=== PATIENT | female | born 1985 | race Caucasian/White ===

== ENCOUNTER → 2016-09-19 | Outpatient (CLI) | payer BC ==
[~2016-09-19] MED LIST: ALBU1AER9 INH; ASPI-390 PO; ASPI81TA28 PO; ATOR-26 PO; CALC500C70 PO; CLON0.5T3 PO; CLON1TAB3 PO; CTP/1 PO; FERR160T PO; FLUT0.15 NAE; LAMO25TA PO; METO25TA3 PO; MONT1TAB3 PO; SENNTAB23 PO; SERT-234 PO; VENL150C PO; VENL75CA PO; WLLSR150 PO
[2016-09-19 17:45] LABS: BASO % 0.5 %; BASO ABS # 0.04 K/uL (0-0.2); COMPLETE YES; HEMATOCRIT 36.5 % (37-47); IG% 0.3 %; LYMPH % 23.1 %; LYMPH ABS # 2.04 K/uL (1.2-3.4); MEAN CORPUSCULAR HEMOGLOBIN 30.1 pg (25-34); MEAN CORPUSCULAR HGB CONC 34.2 g/dl (32-36); MEAN PLATELET VOLUME 10.6 fL (7.4-10.4); MONO % 10.9 %; NEUT % 63.2 %; PLATELET COUNT 352 K/uL (130-400); RED BLOOD COUNT 4.15 M/uL (4.2-5.4); WHITE BLOOD COUNT 8.83 K/uL (4.8-10.8)
[2016-09-19 18:13] LABS: ALT/SGPT 25 U/L (12-78); AST/SGOT 12 U/L (15-37); BLOOD UREA NITROGEN 19 mg/dl (7-18); BUN/CREATININE RATIO 30.7 (10-20); CALCIUM 8.6 mg/dl (8.5-10.1); CARBON DIOXIDE 30 mmol/L (21-32); CHLORIDE 105 mmol/L (98-107); CREATININE 0.61 mg/dl (0.60-1.20); GLUCOSE 78 mg/dl (70-99); POTASSIUM 3.8 mmol/L (3.5-5.1); SODIUM 141 mmol/L (136-145)
[2016-09-19 18:24] LABS: ALB/GLOB RATIO 1.1 (0.9-2); ALKALINE PHOSPHATASE 69 U/L (45-117); FERRITIN 31.1 ng/ml (8.0-388.0); THYROID STIMULATING HORMONE 0.815 uIu/ml (0.300-4.500)
== END | disposition home or self-care (01) ==
LOC: C.LAB1850 17:18
PROVIDERS: ATTEND Family Medicine
DX: R52 Pain, unspecified (principal); R00.2 Palpitations

== ENCOUNTER → 2016-10-10 | Outpatient (CLI) | payer BC | END | disposition home or self-care (01) | LOC: C.PAPS 09:27 | PROVIDERS: ATTEND Obstetrics & Gynecology | DX: Z01.419 Encounter for gynecological examination (general) (routine) without abnormal findings (principal); Z87.42 Personal history of other diseases of the female genital tract ==

== ENCOUNTER → 2016-10-10 | Outpatient (CLI) | payer BC ==
[2016-10-10 18:44] LABS: URINE APPEARANCE CLEAR (CLEAR); URINE BILIRUBIN NEG (NEG); URINE COLOR YELLOW; URINE EPITHELIAL CELL AUTO 0-5 /lpf (0-5); URINE NITRITE NEG (NEG); UROBILINOGEN NEG (NEG)
[2016-10-10 18:50] LABS: MANUAL MICROSCOPIC REQUIRED? NO; REVIEW REQ? NO
[2016-10-14 00:36] LABS: CHLAMYDIA TRACH RNA*** NOT DETECTED (NOT DETECTED); GC (NEIS GONORRHOEAE)RNA** NOT DETECTED (NOT DETECTED); TRICHOMONAS VAGINALIS RNA** NOT DETECTED (NOT DETECTED)
== END | disposition home or self-care (01) ==
LOC: C.LABSPEC 17:50
PROVIDERS: ATTEND Obstetrics & Gynecology
DX: Z01.419 Encounter for gynecological examination (general) (routine) without abnormal findings (principal); R39.9 Unspecified symptoms and signs involving the genitourinary system; N89.8 Other specified noninflammatory disorders of vagina; Z87.42 Personal history of other diseases of the female genital tract

== ENCOUNTER 2017-02-16 18:46 | Inpatient (IN) | payer BC, OTHER ==
[~2017-02-16] VITALS: Ht 167.6 cm; Wt 75.0 kg
[~2017-02-16 18:46] MED LIST changes: -CTP/1 PO; -LAMO25TA PO; -METO25TA3 PO; -VENL150C PO; -VENL75CA PO; -WLLSR150 PO
--- NOTE | 2017-02-16 19:33 | EMERGENCY ROOM VISIT NOTE ---
History Report prepared by Vignesh: Jon Hilton Under the Supervision of: Dr. Golden Sandra M.D. First contact with patient: 19:13 Chief Complaint: MENTAL HEALTH EVALUATION Stated Complaint: MENTAL HEALTH CRISIS History of Present Illness The patient is a 31 year old female who presents to the Emergency Room for a mental health evaluation. The patient states that last October she had a heart attack, and ever since then she has been having PTSD and panic disorder. Additionally, she states that she was fired three days ago, and six days ago is when it started to get bad. She takes Effexor, clonidine, Klonopin, and Lamictal. She additionally states that she has been sleeping a lot recently, and last night she had a panic attack while shaking and her heart was racing. She additionally states that she has been having migraines, and she is congested and has chills. She denies any fevers. Source of History: patient Onset: 6 days ago Position: other (global) Quality: other (mental health evaluation) Associated Symptoms: + chills, No fevers Note: Associated symptoms: Congestion Review of Systems All systems have been listed, reviewed, and are negative other than those previously mentioned. Please see Additional Medical History Sheet. Past Medical & Surgical Medical Problems: (1) Acute [place] (2) Anxiety (3) Appendectomy (4) hemiplegic migraine Family History Blood clots MOTHER Stroke Thromboembolic disease MOTHER Social History Smoking Status: Current Every Day Smoker Alcohol Use: none Drug Use: none Marital Status: in relationship Housing Status: lives with roommate Occupation Status: employed Current/Historical Medications Scheduled Calcium/Vitamin D (Os-Calvin 500 Plus D), 1 TAB PO BID Clonazepam (Klonopin), 0.25 MG PO BID Clonidine Hcl (Catapres), 0.1 MG PO BID Ferrous Sulfate Dried (Slow Fe), 2 TAB PO QAM Ferrous Sulfate Dried (Slow Fe), 1 TAB PO HS Fluticasone Propionate (Nasal) (Flonase Allergy Relief), 2 SPRAYS ESTHER DAILY Lamotrigine (Lamictal), 50 MG PO HS Metoprolol Succ (Toprol Xl) (Toprol-Xl), 12.5 MG PO DAILY Montelukast Sodium (Singulair), 10 MG PO HS Venlafaxine Hcl (Effexor Xr), 75 MG PO DAILY Venlafaxine Hcl (Effexor Xr), 150 MG PO DAILY Scheduled PRN Albuterol (Proair Hfa), 2 PUFF INH Q4H PRN for SOB/Wheezing Kktrgqe-Gixozlukpnzpx-Hlkqufnz (Excedrin Migraine), 1 TAB PO BID PRN for MIGRAINES Allergies Coded Allergies: Bacitracin (Verified Allergy, Unknown, swelling ,fungal infection, 02/16/17 ) Neomycin (Verified Allergy, Unknown, unknown, 02/16/17) per [facility] Polymyxin B (Verified Allergy, Unknown, unknown, 02/16/17) per [facility] Propylene Glycol (Verified Allergy, Unknown, unknown, 02/16/17) per [facility] Physical Exam Vital Signs Date Time Temp Pulse Resp B/P (MAP) Pulse Ox O2 Delivery O2 Flow Rate FiO2 02/16/17 19:03 102 18 148/80 98 Room Air Physical Exam GENERAL: Tearful, despondent, forlorn. Patient awake, alert, oriented x 3. Patient follows commands. Patient does not appear toxic. Patient is adequately hydrated and well-nourished. SKIN: No erythema, pallor, cyanosis or rash HEENT: Normal head, pupils equal, reactive to light and accommodation. Oral cavity and posterior pharynx appear normal. Tenderness over the maxillary sinuses. LUNGS: Clear to auscultation. No wheezes, no rales, no rhonchi. HEART: No murmurs. No gallops. No rubs ABDOMEN: Soft and nontender EXTREMITIES: No signs of trauma or infection. NEUROLOGIC: Cranial nerves II-XII within normal limits. No gross motor sensory function deficits. PSYCH: Awake, alert, oriented, fearful, and tearful. Denies suicidal ideation. Medical Decision & Procedures Laboratory Results 02/16/17 20:17 02/16/17 20:17 Test 02/16/17 19:15 02/16/17 20:17 Urine Color YELLOW Urine Appearance CLEAR (CLEAR) Urine pH 5.5 (4.5-7.5) Urine Specific [place] 1.028 (1.000-1.030) Urine Protein TRACE (NEG) Urine Glucose (UA) NEG (NEG) Urine Ketones TRACE (NEG) Urine Occult Blood 2+ (NEG) Urine Nitrite NEG (NEG) Urine Bilirubin NEG (NEG) Urine Urobilinogen NEG (NEG) Urine Leukocyte Esterase NEG (NEG) Urine WBC (Auto) 1-5 /hpf (0-5) Urine RBC (Auto) >30 /hpf (0-4) Urine Hyaline Casts (Auto) 5-10 /lpf (0-5) Urine Epithelial Cells (Auto) >30 /lpf (0-5) Urine Bacteria (Auto) NEG (NEG) Urine Opiates Screen NEG (NEG) Urine Methadone, Qualitative NEG (NEG) Urine Barbiturates NEG (NEG) Urine Phencyclidine (PCP) Level NEG (NEG) Ur Amphetamine/Methamphetamine NEG (NEG) MDMA (Ecstasy) Screen NEG (NEG) Urine Benzodiazepines Screen NEG (NEG) Urine Cocaine Metabolite NEG (NEG) Urine Marijuana (THC) POS (NEG) Red Blood Count 4.39 M/uL (4.2-5.4) Mean Corpuscular Volume 88.2 fL (80-100) Mean Corpuscular Hemoglobin 30.3 pg (25-34) Mean Corpuscular Hemoglobin Concent 34.4 g/dl (32-36) RDW Standard Deviation 40.3 fL (36.4-46.3) RDW Coefficient of Variation 12.6 % (11.5-14.5) Mean Platelet Volume 10.4 fL (7.4-10.4) Anion Gap 5.0 mmol/L (3-11) Est Creatinine Clear Calc Drug Dose 118.6 ml/min Estimated GFR () 133.5 Estimated GFR (Non- 115.2 BUN/Creatinine Ratio 20.6 (10-20) Calcium Level 8.8 mg/dl (8.5-10.1) Total Bilirubin 0.3 mg/dl (0.2-1) Aspartate Amino Transf (AST/SGOT) 15 U/L (15-37) Alanine Aminotransferase (ALT/SGPT) 28 U/L (12-78) Alkaline Phosphatase 58 U/L (45-117) Total Protein 7.8 gm/dl (6.4-8.2) Albumin 3.9 gm/dl (3.4-5.0) Globulin 3.9 gm/dl (2.5-4.0) Albumin/Globulin Ratio 1.0 (0.9-2) Thyroid Stimulating Hormone (TSH) 1.390 uIu/ml (0.300-4.500) Ethyl Alcohol mg/dL < 3.0 mg/dl (0-3) ED Course 1912: Past medical records reviewed. The patient was evaluated in room A8. A complete history and physical examination was performed. Medical Decision Nurses notes reviewed. Medical history sheet reviewed. Differential diagnosis includes but is not limited to: anxiety reaction, severe depression, metabolic disorder, sinusitis. The patient is here with depression. She is unable to cope at home. She is not suicidal but unable to care for herself or her baby. Multiple labs, EKG and urinalysis were obtained. Please see above. The patient was given Ativan for anxiety. She was also given a NicoDerm patch. She was evaluated by our psych liaison nurse. Patient will be admitted to our psychiatric floor. Blood Pressure Screening Blood pressure disposition: Elevated BP felt to be situational Impression Primary Impression: Severe depression Additional Impression: Anxiety Scribe Attestation The scribe's documentation has been prepared under my direction and personally reviewed by me in its entirety. I confirm that the note above accurately reflects all work, treatment, procedures, and medical decision making performed by me. Departure Information Referrals Opal Akins M.D. (PCP) Patient Instructions [facility] Problem Qualifiers
[2017-02-16 19:55] LABS: MANUAL MICROSCOPIC REQUIRED? NO; REVIEW REQ? NO; URINE APPEARANCE CLEAR (CLEAR); URINE BILIRUBIN NEG (NEG); URINE COLOR YELLOW; URINE EPITHELIAL CELL AUTO >30 /lpf (0-5); URINE NITRITE NEG (NEG); URINE PH 5.5 (4.5-7.5); URINE SPECIFIC GRAVITY 1.028 (1.000-1.030); UROBILINOGEN NEG (NEG)
[2017-02-16] MEDS ORDERED: VENL75CA PO (19:56)
[2017-02-16] MEDS ORDERED: CTP/1 PO (19:56)
[2017-02-16] MEDS ORDERED: METO25TA3 PO (19:56)
[2017-02-16] MEDS ORDERED: LAMO25TA PO (19:56)
[2017-02-16] MEDS ORDERED: VENL150C PO (19:56)
[2017-02-16 20:23] LABS: BENZODIAZEPINE, URINE NEG (NEG); COCAINE,URINE NEG (NEG); PHENCYCLIDINE, URINE NEG (NEG)
[2017-02-16 20:34] LABS: HEMATOCRIT 38.7 % (37-47); MEAN CELL VOLUME 88.2 fL (80-100); MEAN CORPUSCULAR HEMOGLOBIN 30.3 pg (25-34); MEAN CORPUSCULAR HGB CONC 34.4 g/dl (32-36); MEAN PLATELET VOLUME 10.4 fL (7.4-10.4); PLATELET COUNT 396 K/uL (130-400); RED BLOOD COUNT 4.39 M/uL (4.2-5.4); WHITE BLOOD COUNT 9.91 K/uL (4.8-10.8)
[2017-02-16 20:49] LABS: BUN/CREATININE RATIO 20.6 (10-20); CALCIUM 8.8 mg/dl (8.5-10.1); CREATININE 0.69 mg/dl (0.60-1.20); POTASSIUM 3.6 mmol/L (3.5-5.1)
[2017-02-16 21:00] LABS: THYROID STIMULATING HORMONE 1.39 uIu/ml (0.300-4.500)
[2017-02-16] MEDS ORDERED: LORAZEPAM 1 MG TAB PO STA (21:01)
[2017-02-16] MEDS ORDERED: NICOTINE 14 MG/24 HR TDSY ONE (21:35)
[2017-02-16] MEDS ORDERED: LORAZEPAM 2 MG/ML 1 ML VIAL IV STA (22:06)
[2017-02-16] MEDS ORDERED: CLONAZEPAM 0.5 MG TAB PO ONE (22:41)
[2017-02-16] MEDS ORDERED: hydrOXYzine HCL 25 MG TAB PO PRN (22:45)
[2017-02-16] MEDS ORDERED: SODIUM CHLORIDE 0.65% NA SOLN 45 ML (OCEAN) PRN (22:45)
[2017-02-16] MEDS ORDERED: ALBUTEROL HFA 8 GM INHALER INH PRN (22:45)
[2017-02-16] MEDS ORDERED: RISPERIDONE 0.5 MG TAB PO PRN (22:45)
[2017-02-16] MEDS ORDERED: BISMUTH SUBSALICYLATE PER ML OMNICELL CHARGE PO PRN (22:45)
[2017-02-16] MEDS ORDERED: ACETAMINOPHEN 325 MG TAB PO PRN (22:45)
[2017-02-16 23:13] VITALS: BP 131/81; BMI 20.5
[2017-02-16] MEDS ORDERED: ACETAMINOPHEN 500 MG TAB PO ONE (23:41)
[2017-02-17 00:07] VITALS: O2SAT 97
[2017-02-17] MEDS: hydrOXYzine HCL 25 MG TAB PO PRN (01:02)
[2017-02-17] MEDS ORDERED: CLONAZEPAM 0.5 MG TAB PO ONE (01:30)
[2017-02-17 06:47] VITALS: BP_SYST 129; BP_SYST 134; BP_DIAS 86; BP_DIAS 93; PULSE 84; PULSE 86; TEMP 36.7
[2017-02-17] MEDS ORDERED: NICOTINE 14 MG/24 HR TDSY TD SCH (09:00)
[2017-02-17] MEDS: CAFFEINE PO SCH ×2 (09:00→22:00)
[2017-02-17] MEDS: ASPIRIN PO SCH ×2 (09:00→22:00)
[2017-02-17] MEDS: ACETAMINOPHEN PO SCH ×2 (09:00→22:00)
[2017-02-17] MEDS: CALCIUM 600MG + VIT D 400 IU TAB PO SCH ×2 (09:43→22:11)
[2017-02-17] MEDS: FLUTICASONE PROPIONATE NA SPR 16 GM BTL NAE SCH (09:43)
[2017-02-17] MEDS: CLONIDINE HCL 0.1 MG TAB PO SCH ×2 (09:44→22:11)
[2017-02-17] MEDS: VENLAFAXINE HCL XR 150 MG CAPXR PO SCH (09:44)
[2017-02-17] MEDS: VENLAFAXINE HCL XR 75 MG CAPXR PO SCH (09:44)
[2017-02-17] MEDS: CLONAZEPAM 0.5 MG TAB PO SCH ×3 (09:45→22:11)
[2017-02-17] MEDS: FERROUS SULFATE 325 MG TAB PO SCH (09:45)
[2017-02-17] MEDS: METOPROLOL SUCC 25MG EXT REL TAB PO SCH (09:46)
[2017-02-17] MEDS: NICOTINE POLACRILEX 2 MG GUM MT PRN ×2 (11:27→16:12)
[2017-02-17] MEDS ORDERED: BuPROPion SR 100 MG TABCR PO ONE (12:00)
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
--- NOTE | 2017-02-17 12:11 | Psychiatric History & Physical ---
History Date of Service Feb 17, 2017. Identifying Data Ghazal Laguna is a 31-year-old female who currently lives with her boyfriend in [place]. Ghazal Laugna was admitted on a 201 voluntary commitment. Patient came to ED with family after contacting [facility] for suicidal thoughts. Additional history was obtained by her outpatient psychiatrist Dr. Roman for continuity of care. Chief Complaint "I didn't want things to get to this point". History of Present Illness Ghazal initially entered care [facility] approximately 2003 for depression, anxiety and possible bipolar spectrum disorder (given reports of possible psychotic features and atypical response to medication). She re- entered psychiatric services 1 year ago for increase in panic and PTSD like symptoms following a myocardial infarct. She was able to return to work for [employer] after 1 year of [place] but was recently fired. She had previously told her psychiatrist that if she would lose her job that she wouldn' t want to live or rather have nothing to live for. She wants to be able to work and feel productive. She was peeling an avocado yesterday and had an intrusive thought about stabbing herself in the heart and activated her crisis plan. She doesn't want to act on such thoughts as she wants to be "there for" and care for her daughter. She admittedly struggled with tasks due to depression and anxiety, lack of focus and energy. She also notes stress related to her relationship, traumatic in 2013, and chronic headaches. She is more self-aware following longstanding therapy with Dr. Wade but has difficulty coping when others "project my thoughts onto me". When stressed she will pick at her skin and has multiple clean excoriations on her shoulders, chest and forearms that border on trichotillomania but she denies hairpulling of eye brows or lashes. She has been hypersomnolent with increased cravings for sweets, though some improvement in those symptoms following discontinuation of Remeron in December. She remains ambivalent about medications as reports side effects to various mood stabilizers in the past. Past Psychiatric History Current OP Treatment: psychiatrist (Dr. Roman ([facility])), therapist ( Dr. Wade, [facility]) Prior OP Treatment: psychiatrist ([facility]) Prior Psych Hospitalizations: none Access to a Gun: No Suicide Attempts: No Past Medication Trials Amanda, Lamictal, Abiligy ("thick tongue"), Zoloft, Klonopin (sedating), TCA, trazodone, Strattera, Risperdal (recent short term as prn), Effexor XR, clonidine (was started for anxiety but ultimately dose adjustment via cards to BID following [place]); NO previous Wellbutrin or Buspar. Additional Notes prior dx of bipolar II, MDD, panic, PTSD, possible borderline traits, ongoing rule out of schizoaffective disorder denies history of manic symptoms longstanding fears about someone trying to kill her with obsessions around safety (even not having current address on license). Past Medical/Surgical History History of Concussion/Seizure: No (1) hemiplegic migraine (2) Appendectomy (3) Acute [place] Allergies Allergies: Coded Allergies: Bacitracin (Verified Allergy, Unknown, swelling ,fungal infection, 02/16/17 ) Neomycin (Verified Allergy, Unknown, unknown, 02/16/17) per [facility] Polymyxin B (Verified Allergy, Unknown, unknown, 02/16/17) per [facility] Propylene Glycol (Verified Allergy, Unknown, unknown, 02/16/17) per [facility] Home Medications Scheduled Calcium/Vitamin D (Os-Calvin 500 Plus D), 1 TAB PO BID Clonazepam (Klonopin), 0.25 MG PO BID Clonidine Hcl (Catapres), 0.1 MG PO BID Ferrous Sulfate Dried (Slow Fe), 2 TAB PO QAM Ferrous Sulfate Dried (Slow Fe), 1 TAB PO HS Fluticasone Propionate (Nasal) (Flonase Allergy Relief), 2 SPRAYS ESTHER DAILY Lamotrigine (Lamictal), 50 MG PO HS Metoprolol Succ (Toprol Xl) (Toprol-Xl), 12.5 MG PO DAILY Montelukast Sodium (Singulair), 10 MG PO HS Venlafaxine Hcl (Effexor Xr), 75 MG PO DAILY Venlafaxine Hcl (Effexor Xr), 150 MG PO DAILY Scheduled PRN Albuterol (Proair Hfa), 2 PUFF INH Q4H PRN for SOB/Wheezing Veejyzv-Pufbaedhbfkii-Kzdqmfmu (Excedrin Migraine), 1 TAB PO BID PRN for MIGRAINES Family History Blood clots MOTHER Stroke Thromboembolic disease MOTHER History of Suicide: No History of Substance Abuse: No Psychiatric History: Yes (mother and father anxiety, fa depression, sister trich, brother ?psychotic disorder) Alcohol Use Alcohol Use In Past 12 Months: Yes (1 beer per night) Smoking Use Smoking Status: Current Every Day Smoker Substance History regular MJ Personal History Lives in: [place] Education: graduated college Work History: GIS mapping for [employer] Relationship History: never Children: 1 Spiritual Affiliation: atheist Legal History: none Psychological Trauma History: Life Threatening Disease ([place], emergency ) Review of Systems Psych: denies symptoms other than stated above Constitutional: denied Cardiovascular: denied GI: denied Neurologic: headache last pm Remainder of 10 body systems also reviewed and denied other than noted above. Examination Physical Examination A physical exam was performed in the ER prior to admission to the unit by Dr. Sandra. I accept that physical as correct/medical clearance for the inpatient physical exam. Vital Signs Vital Signs Past 12 Hours Date Time Temp Pulse Resp B/P (MAP) Pulse Ox O2 Delivery O2 Flow Rate FiO2 02/17/17 06:47 36.7 84 16 129/86 86 134/93 02/17/17 00:07 99 18 131/81 97 Laboratory Results Last 24 Hours Test 02/16/17 19:15 02/16/17 20:17 Urine Color YELLOW Urine Appearance CLEAR Urine pH 5.5 Urine Specific [place] 1.028 Urine Protein TRACE Urine Glucose (UA) NEG Urine Ketones TRACE Urine Occult Blood 2+ Urine Nitrite NEG Urine Bilirubin NEG Urine Urobilinogen NEG Urine Leukocyte Esterase NEG Urine WBC (Auto) 1-5 /hpf Urine RBC (Auto) >30 /hpf Urine Hyaline Casts (Auto) 5-10 /lpf Urine Epithelial Cells (Auto) >30 /lpf Urine Bacteria (Auto) NEG Urine Opiates Screen NEG Urine Methadone, Qualitative NEG Urine Barbiturates NEG Urine Phencyclidine (PCP) Level NEG Ur Amphetamine/Methamphetamine NEG MDMA (Ecstasy) Screen NEG Urine Benzodiazepines Screen NEG Urine Cocaine Metabolite NEG Urine Marijuana (THC) POS White Blood Count 9.91 K/uL Red Blood Count 4.39 M/uL Hemoglobin 13.3 g/dL Hematocrit 38.7 % Mean Corpuscular Volume 88.2 fL Mean Corpuscular Hemoglobin 30.3 pg Mean Corpuscular Hemoglobin Concent 34.4 g/dl RDW Standard Deviation 40.3 fL RDW Coefficient of Variation 12.6 % Platelet Count 396 K/uL Mean Platelet Volume 10.4 fL Sodium Level 140 mmol/L Potassium Level 3.6 mmol/L Chloride Level 108 mmol/L Carbon Dioxide Level 27 mmol/L Anion Gap 5.0 mmol/L Blood Urea Nitrogen 14 mg/dl Creatinine 0.69 mg/dl Est Creatinine Clear Calc Drug Dose 118.6 ml/min Estimated GFR () 133.5 Estimated GFR (Non- 115.2 BUN/Creatinine Ratio 20.6 Random Glucose 109 mg/dl Calcium Level 8.8 mg/dl Total Bilirubin 0.3 mg/dl Aspartate Amino Transf (AST/SGOT) 15 U/L Alanine Aminotransferase (ALT/SGPT) 28 U/L Alkaline Phosphatase 58 U/L Total Protein 7.8 gm/dl Albumin 3.9 gm/dl Globulin 3.9 gm/dl Albumin/Globulin Ratio 1.0 Thyroid Stimulating Hormone (TSH) 1.390 uIu/ml Ethyl Alcohol mg/dL < 3.0 mg/dl Mental Examination During interview pt is: alert and oriented, cooperative Appearance: appropriately groomed Eye contact is: fair Motor behavior is: no abnormal motor movements Speech: normal in rate, rhythm & volume Affect: depressed, tearful Mood is: depressed, anxious Thought process: clear, coherent Thought content: reality based without delusions Suicidal thought are: denied Homicidal thoughts are: denied Hallucinations: denies auditory, denies visual Cognition: memory grossly intact, language grossly intact Intelligence estimated to be: consistent with level of education Insight: limited Judgement: limited Impression / Recommendations Impression 31 yo female with a long history of anxiety and depression, anxiety bordering on paranoia. There is family history of OCD spectrum disorder (trich) as well as possible psychotic disorder. She continues to endorse multiple vegetative symptoms of depression despite target dose Effexor XR. She uses MJ regularly. Inventory Assets Strengths: intelligent, longstanding relationship with providers Risk Factors Assessment : Yes Higher / Fall in social status: Yes (job loss) Access to guns: No Mental Health Diagnoses: Yes Previous attempt: No Previous psychiatric stay: No Protective Factors Assessment Responsible for young children: Yes Employed: No Stable relationships: Yes Recommendations (1) Major depressive disorder, recurrent episode 02/17--The patient is admitted to [facility] (locked inpatient mental health unit) on q 15 min checks (behavioral with suicide precautions) for safety. The patient will participate in group, recreational and milieu therapies and will be offered additional individual and family sessions as clinically appropriate. Risks/benefits/alternatives reviewed re: Wellbutrin for residual low energy, depression and poor focus. Reviewed that dopaminergic so rare risk of exacerbating psychosis. No psychosis on exam and primary presentation is depressed and will be monitored on inpatient unit. Wellbutrin is to augment Effexor XR, will start low dose of 100 mg SR today and increase to 150 mg SR tomorrow am. Additional titration as tolerated. (2) Panic disorder with agoraphobia continue Effexor XR and Klonopin at current doses though ultimately may be preferable to taper Klonopin in favor of trial of Buspar. PDMP rx Aware database query, last rx by Dr. Roman filled 02/05 for 60 tabs of 0.5 mg. (3) History of posttraumatic stress disorder (PTSD) group therapy, ongoing monitoring and reassurance around medical conditions (4) Excoriation (skin-picking) disorder monitor, no cutting so doesn't seem driven as SIB, more OCD spectrum, consider inositol as outpatient, ?keratosis pilaris as contributing factor (5) Cannabis use disorder, mild, in controlled environment will encourage abstinence, full brief intervention deferred for when more psychological stable (6) Nicotine dependence nicotine gum. Patient desires to continue smoking as a coping skill. Will readdress brief intervention prior to discharge. (7) Status post myocardial infarction continue current meds, I do have some concerns about combo of clonidine or metoprolol if patient would have thoughts to OD given both can cause bradycardia (8) Migraine headache prefers ibuprofen, states she is between neurologists at this time so f/u re: this and pressors most likely with PCP initially. CPT Code Initial Hospital Care: [id number]
[2017-02-17] MEDS ORDERED: NURSING VERBAL MED ORDER ONE (19:30)
[2017-02-17] MEDS: NICOTINE 14 MG/24 HR TDSY TD SCH (20:03)
[2017-02-17] MEDS ORDERED: FERROUS SULFATE DRIED PO SCH (21:00)
[2017-02-17] MEDS: MONTELUKAST SOD 10 MG TAB PO SCH (22:11)
[2017-02-18] MEDS: hydrOXYzine HCL 25 MG TAB PO PRN (01:04)
[2017-02-18 06:59] VITALS: BP_SYST 118; BP_SYST 120; BP_DIAS 75; BP_DIAS 83; PULSE 71; PULSE 73; TEMP 36.6
[2017-02-18 07:07] VITALS: Ht 167.6 cm; Wt 75.0 kg
--- NOTE | 2017-02-18 07:52 | Psychiatric Progress Notes ---
Progress Note Date of Service Feb 18, 2017. Interval History Ghazal Laguna is a 31-year-old female who currently lives with her boyfriend in [place]. Ghazal Laguna was admitted on a 201 voluntary commitment. Patient came to ED with family after contacting [facility] for suicidal thoughts. Additional history was obtained by her outpatient psychiatrist Dr. Roman for continuity of care. Chief Complaint "This is probably one of the biggest mistakes of my life". Subjective Patient was seen & assessed interval progress reviewed with Nursing. Staff report she got hydroxyzine for sleep, and slept 5 hours. Her parents visited the first night she was admitted, and were somewhat intrusive and demanding. She had a 2 hour meeting with her parents and boyfriend yesterday. Her relationship with her boyfriend was the focus, so her parents were asked to leave. They were quick to attack one another and had poor communication skills. Both indicated that the only reason they were in the relationship was because of their daughter. She said her boyfriend is too harsh on her, doesn't understand or validate her inability to function related to her depression, and Vlad was upset because he has serious medical problems and forces himself to go to work and is then left with all of the housework and other responsibilities. They seemed to compete with one another for who contributes the most and who needs the most help. They were asked repeatedly about willingness for out-patient couples work with no response, they talked about separation, and then parents rejoined the meeting and when the patient began rehashing what was discussed earlier, her mother joined into the discussion and confronted Vlad, encouraging him to think about getting help for himself before making a final decision and said that if he decides to end the relationship that he needs to take ownership of this. He agreed not to end the relationship yet and to get an individual therapist, but was not yet ready to commit to couples therapy. Very little time of the two hour meeting was actually spent focussing on what pt needs for support moving forward. Mother did try to reinforce to Vlad that pt doesn't want to feel like this and revealed that she herself went through a period of around 6 months when she was unable to do grocery shopping or household duties other than getting a child off of the school bus. Vlad said that he does know that pt doesn't want to feel like this but that he still needs for her to take some responsibility. The patient states she is very unhappy that she is here, "I can't believe I signed myself into a place where you can't go outside and get fresh air," and perseverates on this, with many complaints about hospital policies, "I can't believe any mental health professional would do this, how are you supposed to get better without fresh air and nature? If I can't get out of here soon, I'm going to have to go somewhere else." She states she "doesn't know" what she is working on here, or what her goals of treatment are. She says she was feeling suicidal and "I knew I had that option, if I couldn't take it anymore, I knew I could end my suffering." She says that now that she has a child, "it's not even on the table as a theoretical option." She describes "not even wanting to exist , feeling like I couldn't live in the world anymore, fantasizing about not living, just want to go to sleep and just not wake up, don't want to keep breathing, don't want my heart to keep beating, don't want to keep suffering and living in this horrible, horrible world." She describes being unable to function at home, was unable to leave her house, worse since the election, "at least 1 in 3 people out there want me and my friends , I just feel very unsafe I the world, I feel helpless to do anything about it. I feel very scared...there are monsters around every corner." She talks at length about " all the hatefulness in the world." She says she hasn't discussed any of this with staff or in groups. She says it won't do any good to talk about this in group as "no one will have any suggestions for real threats," referring to her political views. She says she doesn't think things will get any better, "it just gets scarier every day." Multiple attempts were made to redirect her towards her treatment here, and she said she "doesn't even know" what was on her treatment plan or what she's discussed with staff. "I have no will to live, more and more disturbing thoughts related to myself dying, it got to a point where it was getting scary and I needed to go for help." She says she doesn't know if medications are helping or if she is having side effects. She felt worse after her family meeting yesterday, and "went to group for the first time which was terrifying." She felt "drained" last night and slept better. She had visits from friends and family and "just wanted them to go away." Today she says "I just want to get out of here, I have a headache, I have headaches all the time." She admits that nothing has changed since admission, "things at home are really bad, and when I lost my job, which was a horrible, horrible thing, getting fired was really bad..." Sleep Information Total Hours of Sleep: 5.00 Meal Information Percent of Breakfast Consumed: 100 Percent of Lunch Consumed: 0 Percent of Dinner Consumed: 0 Mental Status Exam During interview pt is: alert and oriented, cooperative Appearance: appropriately groomed, disheveled, other (scrub pants, long sleeved t-shirt, headwrap) Eye contact is: fair Motor behavior is: steady gait & station, no abnormal motor movements Speech: normal in rate, rhythm & volume Affect: depressed, tearful, irritable Mood is: depressed, other ("not good") Thought process: goal directed, perseveration (negative thoughts) Thought content: preoccupation (with the negativity in the world) Suicidal thought are: present ("just want to go to sleep and not wake up") Homicidal thoughts are: denied Hallucinations: denies auditory, denies visual Cognition: memory grossly intact, language grossly intact Intelligence estimated to be: consistent with level of education Insight: limited Judgement: limited Impression 31 yo female with a long history of anxiety and depression, anxiety bordering on paranoia. There is family history of OCD spectrum disorder (trich) as well as possible psychotic disorder. She continues to endorse multiple vegetative symptoms of depression despite target dose Effexor XR, so bupropion was added on admission. She uses MJ regularly. Plan (1) Major depressive disorder, recurrent episode 02/17--The patient is admitted to [facility] (locked inpatient mental health unit) on q 15 min checks (behavioral with suicide precautions) for safety. The patient will participate in group, recreational and milieu therapies and will be offered additional individual and family sessions as clinically appropriate. Risks/benefits/alternatives reviewed re: Wellbutrin for residual low energy, depression and poor focus. Reviewed that dopaminergic so rare risk of exacerbating psychosis. No psychosis on exam and primary presentation is depressed and will be monitored on inpatient unit. Wellbutrin is to augment Effexor XR, will start low dose of 100 mg SR today and increase to 150 mg SR tomorrow am. Additional titration as tolerated. 02/18 - continue venlafaxine XR 225mg daily and bupropion SR, increased to 150mg qam today. Encouraged her to participate in groups and process her stressors, work on healthy coping skills to manage her distress. (2) Panic disorder with agoraphobia continue Effexor XR and Klonopin at current doses though ultimately may be preferable to taper Klonopin in favor of trial of Buspar. PDMP rx Aware database query, last rx by Dr. Roman filled 02/05 for 60 tabs of 0.5 mg. (3) History of posttraumatic stress disorder (PTSD) group therapy, ongoing monitoring and reassurance around medical conditions (4) Excoriation (skin-picking) disorder monitor, no cutting so doesn't seem driven as SIB, more OCD spectrum, consider inositol as outpatient, ?keratosis pilaris as contributing factor (5) Cannabis use disorder, mild, in controlled environment will encourage abstinence, full brief intervention deferred for when more psychological stable. 02/18 - Again attempted brief intervention, patient unable to tolerate, angry and defensive. (6) Nicotine dependence nicotine gum. Patient desires to continue smoking as a coping skill. Will readdress brief intervention prior to discharge. 02/18 - patch added to gum at patient's request for cravings. (7) Status post myocardial infarction continue current meds, I do have some concerns about combo of clonidine or metoprolol if patient would have thoughts to OD given both can cause bradycardia (8) Migraine headache prefers ibuprofen, states she is between neurologists at this time so f/u re: this and pressors most likely with PCP initially. (9) Upper respiratory infection 02/18 - patient reporting congestion and BRAVO. Tylenol, Ibuprofen, guaifenesin, nasal spray, and lozenges prn. Discharge / Aftercare Planning Primary Care Physician: Name: Dr. Akins Psychiatrist: Name: Dr. Roman Therapist: Name: Dr. Cade Date of Appointment: Feb 22, 2017 Time of Appointment: 6:00 pm Cardiology Nurse Practitioner: Name: None Home Health Services: Home Health Services: none Visit Code E&M Code: 04347 Inventory Assets Strengths: intelligent, longstanding relationship with providers Risk Factors Assessment : Yes Higher / Fall in social status: Yes (job loss) Access to guns: No Health problems: No Mental Health Diagnoses: Yes Substance use disorders: Yes Previous attempt: No Previous psychiatric stay: No Hopelessness: Yes Smoker: Yes Protective Factors Assessment : No Responsible for young children: Yes Employed: No Stable relationships: Yes Supportive family: Yes Data Vital Signs Last 24 Hrs: Date Time Temp Pulse Resp B/P (MAP) Pulse Ox O2 Delivery O2 Flow Rate FiO2 02/18/17 06:59 36.6 71 16 120/75 73 118/83 Meds Administered Last 24 Hrs: Meds Administered (Past 24Hrs) Medications (Trade) Dose Ordered Sig/Live Route Start Time Stop Time Status Last Admin Dose Admin Lorazepam (Ativan Tab) 1 mg NOW STAT PO 02/16/17 21:01 02/16/17 21:02 DC 02/16/17 21:15 1 MG Nicotine (Nicoderm Cq 14MG Patch) 1 patch STK-MED ONCE .ROUTE 02/16/17 21:35 02/16/17 21:36 DC 02/16/17 21:41 1 PATCH Lorazepam (Ativan Inj) 1 mg NOW STAT IV 02/16/17 22:06 02/16/17 22:07 DC 02/16/17 22:22 1 MG Hydroxyzine HCl (Vistaril Tab) 50 mg HSZ PRN PO 02/16/17 22:45 03/18/17 22:44 02/18/17 01:04 50 MG Calcium/Vitamin D (Caltrate Plus Tab) 1 tab BID PO 02/17/17 09:00 03/19/17 08:59 02/17/17 22:11 1 TAB Clonazepam (Klonopin Tab) 0.25 mg TID PO 02/17/17 09:00 03/19/17 08:59 02/17/17 22:11 0.25 MG Clonidine HCl (Catapres Tab) 0.1 mg BID PO 02/17/17 09:00 03/19/17 08:59 02/17/17 22:11 0.1 MG Fluticasone Propionate (Flonase Nasal [place]) 2 sprays DAILY ESTHER 02/17/17 09:00 03/19/17 08:59 02/17/17 09:43 2 SPRAYS Lamotrigine (Lamictal Tab) 50 mg HS PO 02/17/17 21:00 03/19/17 20:59 02/17/17 22:11 50 MG Metoprolol Succinate (Toprol Xl Tab) 12.5 mg DAILY PO 02/17/17 09:00 03/19/17 08:59 02/17/17 09:46 12.5 MG Montelukast Sodium (Singulair Tab) 10 mg HS PO 02/17/17 21:00 03/19/17 20:59 02/17/17 22:11 10 MG Venlafaxine HCl (effeXOR EXTENDED REL CAP) 75 mg DAILY PO 02/17/17 09:00 03/19/17 08:59 02/17/17 09:44 75 MG Venlafaxine HCl (effeXOR EXTENDED REL CAP) 150 mg DAILY PO 02/17/17 09:00 03/19/17 08:59 02/17/17 09:44 150 MG Ferrous Sulfate (Feosol Tab) 325 mg QAM PO 02/17/17 09:00 03/19/17 08:59 02/17/17 09:45 325 MG Diphenhydramine HCl (Benadryl Cap) 25 mg STK-MED ONCE .ROUTE 02/16/17 23:41 02/16/17 23:42 DC 02/16/17 23:41 25 MG Acetaminophen (Tylenol Tab) 1,000 mg STK-MED ONCE PO 02/16/17 23:41 02/16/17 23:42 DC 02/16/17 23:41 1,000 MG Clonazepam (Klonopin Tab) 0.25 mg 0130 ONCE PO 02/17/17 01:30 02/17/17 01:31 DC 02/17/17 01:25 0.25 MG Nicotine Polacrilex (Nicorette 2MG Gum) 1 piece Q2H PRN MT 02/17/17 11:00 03/19/17 10:59 02/17/17 16:12 1 PIECE Bupropion HCl (Wellbutrin-Sr Tab) 100 mg 1200 ONCE PO 02/17/17 12:00 02/17/17 12:01 DC 02/17/17 12:18 100 MG Nicotine (Nicoderm Cq 14MG Patch) 1 patch QAM TD 02/17/17 21:00 03/19/17 20:59 02/17/17 20:03 1 PATCH
[2017-02-18] MEDS: VENLAFAXINE HCL XR 75 MG CAPXR PO SCH (08:36)
[2017-02-18] MEDS: CLONIDINE HCL 0.1 MG TAB PO SCH ×2 (08:36→21:26)
[2017-02-18] MEDS: FERROUS SULFATE 325 MG TAB PO SCH (08:36)
[2017-02-18] MEDS: FLUTICASONE PROPIONATE NA SPR 16 GM BTL NAE SCH (08:36)
[2017-02-18] MEDS: CALCIUM 600MG + VIT D 400 IU TAB PO SCH ×2 (08:36→21:25)
[2017-02-18] MEDS: NICOTINE 14 MG/24 HR TDSY TD SCH (08:37)
[2017-02-18] MEDS: BuPROPion SR 150 MG TABCR PO SCH (08:37)
[2017-02-18] MEDS: METOPROLOL SUCC 25MG EXT REL TAB PO SCH (08:37)
[2017-02-18] MEDS: VENLAFAXINE HCL XR 150 MG CAPXR PO SCH (08:38)
[2017-02-18] MEDS: CLONAZEPAM 0.5 MG TAB PO SCH ×3 (08:39→21:26)
[2017-02-18] MEDS: ACETAMINOPHEN PO SCH ×2 (09:00→22:00)
[2017-02-18] MEDS: CAFFEINE PO SCH ×2 (09:00→22:00)
[2017-02-18] MEDS: ASPIRIN PO SCH ×2 (09:00→22:00)
[2017-02-18] MEDS ORDERED: IBUPROFEN 600 MG TAB PO PRN (11:15)
[2017-02-18] MEDS: GUAIFENESIN 200 MG TAB PO PRN ×2 (12:51→21:29)
[2017-02-18] MEDS: IBUPROFEN 600 MG TAB PO PRN (12:53)
[2017-02-18] MEDS: MONTELUKAST SOD 10 MG TAB PO SCH (21:28)
[2017-02-18 22:13] VITALS: BP 138/90; PULSE 80
[2017-02-19 07:00] VITALS: BP_SYST 122; BP_SYST 132; BP_DIAS 83; BP_DIAS 89; PULSE 66; PULSE 71; TEMP 36.8
--- NOTE | 2017-02-19 08:15 | Psychiatric Progress Notes ---
Progress Note Date of Service Feb 19, 2017. Interval History Ghazal Laguna is a 31-year-old female who currently lives with her boyfriend in [place]. Ghazal Laguna was admitted on a 201 voluntary commitment. Patient came to ED with family after contacting [facility] for suicidal thoughts. Additional history was obtained by her outpatient psychiatrist Dr. Roman for continuity of care. Chief Complaint "I really have to pee, so do you know how long this is gonna be?" Subjective Patient was seen & assessed interval progress reviewed with Nursing. Staff report she did not attend self awareness group last evening. She had a visit from her father and sister, which appeared to go well. She ate her dinner and was interacting positively with peers during her free time. She was on the phone this evening and became tearful, then requested to talk with nursing, asked for copies of her treatment plan and treatment team review from Monday, which were provided. She said that "being here was a mistake" because she cannot go outside and enjoy nature. She said that her med adjustments seem to be beneficial. She was happy to see that her length of stay on Monday's treatment team review said 1-3, and asked what she needs to do to be discharged. Pt was told that attending unit programming and taking her meds are critical to her treatment. She asked about a 72 hour notice, but understood that she could then be involuntarily committed if the clinicians felt she needed further treatment, so she decided not to pursue one. Pt did attend community meeting, where she rated herself a 3/10, saying she feels "trapped." She is hoping to be able to "distract myself by reading." Today, she says she "hasn't had time to process things" because "there is too much going on," and she "hasn't had time to grasp what's going on." She has complaints about her food, and sent multiple breakfast items back. She apologizes that she is "disrupting the flow" here. She participated in group therapy and says it was really helpful, "surprisingly, because I really hated the idea of group anything." She was able to talk about "all the stuff's that's weighing on me." She feels she is in "a really complex situation, there's a lot of layers." She says suggestions given by others were "things I already know, but it's always good to have validation for my thoughts." She gave examples of not wanting to do things for herself that will boost her mood when her housework isn't done, as she feels guilty, "I'm an altruistic person, I put the needs of others before mine." She talks at length about the stressors in her relationship with her boyfriend and her struggles in feeling that she is overly emotional whereas he is stoic. She says she is enjoying time with her peers who she refers to as "the other inmates," and says they are "getting into critical thinking mode." She denies SI since yesterday, but had more anxiety last night when going to bed. Sleep Information Total Hours of Sleep: 5.50 Meal Information Percent of Breakfast Consumed: 100 Percent of Lunch Consumed: 100 Percent of Dinner Consumed: 100 Mental Status Exam During interview pt is: alert and oriented, cooperative Appearance: appropriately groomed, disheveled, other (long hair is down, appears clean) Eye contact is: good Motor behavior is: steady gait & station, no abnormal motor movements Speech: normal in rate, rhythm & volume Affect: other (improved from yesterday, brighter) Mood is: other ("a little better") Thought process: circumstantial Thought content: preoccupation (with the negativity in the world) Suicidal thought are: denied Homicidal thoughts are: denied Hallucinations: denies auditory, denies visual Cognition: memory grossly intact, language grossly intact Intelligence estimated to be: consistent with level of education Insight: limited Judgement: limited Impression 31 yo female with a long history of anxiety and depression, anxiety bordering on paranoia. There is family history of OCD spectrum disorder (trich) as well as possible psychotic disorder. She continues to endorse multiple vegetative symptoms of depression despite target dose Effexor XR, so bupropion was added on admission. She uses [facility] regularly. Plan (1) Major depressive disorder, recurrent episode 02/17--The patient is admitted to [facility] ([facility]) on q 15 min checks (behavioral with suicide precautions) for safety. The patient will participate in group, recreational and milieu therapies and will be offered additional individual and family sessions as clinically appropriate. Risks/benefits/alternatives reviewed re: Wellbutrin for residual low energy, depression and poor focus. Reviewed that dopaminergic so rare risk of exacerbating psychosis. No psychosis on exam and primary presentation is depressed and will be monitored on inpatient unit. Wellbutrin is to augment Effexor XR, will start low dose of 100 mg SR today and increase to 150 mg SR tomorrow am. Additional titration as tolerated. 02/18 - continue venlafaxine XR 225mg daily and bupropion SR, increased to 150mg qam today. Encouraged her to participate in groups and process her stressors, work on healthy coping skills to manage her distress. 02/19 - 02/20 - current continue meds, therapy, and discharge planning - needs to work on safety plan. Suspect axis II component, with borderline traits. (2) Panic disorder with agoraphobia continue Effexor XR and Klonopin at current doses though ultimately may be preferable to taper Klonopin in favor of trial of Buspar. PDMP rx Aware database query, last rx by Dr. Roman filled 02/05 for 60 tabs of 0.5 mg. (3) History of posttraumatic stress disorder (PTSD) group therapy, ongoing monitoring and reassurance around medical conditions (4) Excoriation (skin-picking) disorder monitor, no cutting so doesn't seem driven as SIB, more OCD spectrum, consider inositol as outpatient, ?keratosis pilaris as contributing factor (5) Cannabis use disorder, mild, in controlled environment will encourage abstinence, full brief intervention deferred for when more psychological stable. 02/18 - Again attempted brief intervention, patient unable to tolerate, angry and defensive. (6) Nicotine dependence nicotine gum. Patient desires to continue smoking as a coping skill. Will readdress brief intervention prior to discharge. 02/18 - patch added to gum at patient's request for cravings. (7) Status post myocardial infarction continue current meds, I do have some concerns about combo of clonidine or metoprolol if patient would have thoughts to OD given both can cause bradycardia (8) Migraine headache prefers ibuprofen, states she is between neurologists at this time so f/u re: this and pressors most likely with PCP initially. (9) Upper respiratory infection 02/18 - patient reporting congestion and BRAVO. Tylenol, Ibuprofen, guaifenesin, nasal spray, and lozenges prn. Discharge / Aftercare Planning Primary Care Physician: Name: Dr. Akins Psychiatrist: Name: Dr. Roman Therapist: Name: Dr. Cade Date of Appointment: Feb 22, 2017 Time of Appointment: 6:00 pm Elderly Caregiver: Name: None Home Health Services: Home Health Services: none Visit Code E&M Code: 44725 Inventory Assets Strengths: intelligent, longstanding relationship with providers Risk Factors Assessment : Yes Higher / Fall in social status: Yes (job loss) Access to guns: No Health problems: No Mental Health Diagnoses: Yes Substance use disorders: Yes Previous attempt: No Previous psychiatric stay: No Hopelessness: Yes Smoker: Yes Protective Factors Assessment : No Responsible for young children: Yes Employed: No Stable relationships: Yes Supportive family: Yes Data Vital Signs Last 24 Hrs: Date Time Temp Pulse Resp B/P (MAP) Pulse Ox O2 Delivery O2 Flow Rate FiO2 02/19/17 07:00 36.8 66 16 122/83 71 132/89 02/18/17 22:13 80 16 138/90 Meds Administered Last 24 Hrs: Meds Administered (Past 24Hrs) Medications (Trade) Dose Ordered Sig/Live Route Start Time Stop Time Status Last Admin Dose Admin Calcium/Vitamin D (Caltrate Plus Tab) 1 tab BID PO 02/17/17 09:00 03/19/17 08:59 02/18/17 21:25 1 TAB Clonazepam (Klonopin Tab) 0.25 mg TID PO 02/17/17 09:00 03/19/17 08:59 02/18/17 21:26 0.25 MG Clonidine HCl (Catapres Tab) 0.1 mg BID PO 02/17/17 09:00 03/19/17 08:59 02/18/17 21:26 0.1 MG Fluticasone Propionate (Flonase Nasal [place]) 2 sprays DAILY ESTHER 02/17/17 09:00 03/19/17 08:59 02/18/17 08:36 2 SPRAYS Lamotrigine (Lamictal Tab) 50 mg HS PO 02/17/17 21:00 03/19/17 20:59 02/18/17 21:28 50 MG Metoprolol Succinate (Toprol Xl Tab) 12.5 mg DAILY PO 02/17/17 09:00 03/19/17 08:59 02/18/17 08:37 12.5 MG Montelukast Sodium (Singulair Tab) 10 mg HS PO 02/17/17 21:00 03/19/17 20:59 02/18/17 21:28 10 MG Venlafaxine HCl (effeXOR EXTENDED REL CAP) 75 mg DAILY PO 02/17/17 09:00 03/19/17 08:59 02/18/17 08:36 75 MG Venlafaxine HCl (effeXOR EXTENDED REL CAP) 150 mg DAILY PO 02/17/17 09:00 03/19/17 08:59 02/18/17 08:38 150 MG Ferrous Sulfate (Feosol Tab) 325 mg QAM PO 02/17/17 09:00 03/19/17 08:59 02/18/17 08:36 325 MG Nicotine Polacrilex (Nicorette 2MG Gum) 1 piece Q2H PRN MT 02/17/17 11:00 03/19/17 10:59 02/17/17 16:12 1 PIECE Bupropion HCl (Wellbutrin-Sr Tab) 100 mg 1200 ONCE PO 02/17/17 12:00 02/17/17 12:01 DC 02/17/17 12:18 100 MG Bupropion HCl (Wellbutrin-Sr Tab) 150 mg QAM PO 02/18/17 09:00 03/20/17 08:59 02/18/17 08:37 150 MG Ibuprofen (Motrin Tab) 600 mg Q6 PRN PO 02/17/17 15:15 03/19/17 15:14 02/18/17 12:53 600 MG Nicotine (Nicoderm Cq 14MG Patch) 1 patch QAM TD 02/17/17 21:00 03/19/17 20:59 02/18/17 08:37 1 PATCH Miscellaneous (Remove Nicoderm Patch) 1 ea DAILY@0859 N/A 02/18/17 08:59 03/20/17 08:58 02/18/17 08:45 1 EA Guaifenesin (Organidin Nr Tab) 200 mg Q4H PRN PO 02/18/17 11:15 03/20/17 11:14 02/18/17 21:29 200 MG
[2017-02-19] MEDS: ASPIRIN PO SCH ×2 (09:00→22:00)
[2017-02-19] MEDS: CAFFEINE PO SCH ×2 (09:00→22:00)
[2017-02-19] MEDS: ACETAMINOPHEN PO SCH ×2 (09:00→22:00)
[2017-02-19] MEDS: CLONAZEPAM 0.5 MG TAB PO SCH ×3 (09:34→22:12)
[2017-02-19] MEDS: CALCIUM 600MG + VIT D 400 IU TAB PO SCH ×2 (09:35→22:12)
[2017-02-19] MEDS: IBUPROFEN 600 MG TAB PO PRN (09:35)
[2017-02-19] MEDS: BuPROPion SR 150 MG TABCR PO SCH (09:36)
[2017-02-19] MEDS: VENLAFAXINE HCL XR 75 MG CAPXR PO SCH (09:36)
[2017-02-19] MEDS: VENLAFAXINE HCL XR 150 MG CAPXR PO SCH (09:36)
[2017-02-19] MEDS: FERROUS SULFATE 325 MG TAB PO SCH (09:36)
[2017-02-19] MEDS: METOPROLOL SUCC 25MG EXT REL TAB PO SCH (09:37)
[2017-02-19] MEDS: CLONIDINE HCL 0.1 MG TAB PO SCH ×2 (09:37→22:12)
[2017-02-19] MEDS: FLUTICASONE PROPIONATE NA SPR 16 GM BTL NAE SCH (09:38)
[2017-02-19] MEDS: NICOTINE 14 MG/24 HR TDSY TD SCH (09:44)
[2017-02-19 22:08] VITALS: BP 139/89; PULSE 77
[2017-02-19] MEDS: MONTELUKAST SOD 10 MG TAB PO SCH (22:12)
[2017-02-20 07:00] VITALS: BP_SYST 120; BP_SYST 125; BP_DIAS 81; BP_DIAS 86; PULSE 73; PULSE 74; TEMP 36.6
[2017-02-20] MEDS: CALCIUM 600MG + VIT D 400 IU TAB PO SCH (08:08)
[2017-02-20] MEDS: FLUTICASONE PROPIONATE NA SPR 16 GM BTL NAE SCH (08:08)
[2017-02-20] MEDS: FERROUS SULFATE 325 MG TAB PO SCH (08:09)
[2017-02-20] MEDS: CLONAZEPAM 0.5 MG TAB PO SCH (08:09)
[2017-02-20] MEDS: CAFFEINE PO SCH (08:09)
[2017-02-20] MEDS: CLONIDINE HCL 0.1 MG TAB PO SCH (08:09)
[2017-02-20] MEDS: VENLAFAXINE HCL XR 75 MG CAPXR PO SCH (08:09)
[2017-02-20] MEDS: VENLAFAXINE HCL XR 150 MG CAPXR PO SCH (08:09)
[2017-02-20] MEDS: ACETAMINOPHEN PO SCH (08:09)
[2017-02-20] MEDS: ASPIRIN PO SCH (08:09)
[2017-02-20] MEDS: BuPROPion SR 150 MG TABCR PO SCH (08:10)
[2017-02-20] MEDS: METOPROLOL SUCC 25MG EXT REL TAB PO SCH (08:10)
[2017-02-20] MEDS: NICOTINE 14 MG/24 HR TDSY TD SCH (08:10)
[2017-02-20] MEDS ORDERED: WLLSR150 PO (09:10)
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
== END 2017-02-20 14:15 | disposition home or self-care (01) | DRG 885 ==
LOC: C.EDB 18:49 → C.MHU 22:47 → ENRESERV 22:54
PROVIDERS: ADMIT Student in an Organized Health Care Education/Training Program; ATTEND Student in an Organized Health Care Education/Training Program
DX: F33.9 Major depressive disorder, recurrent, unspecified (principal); F41.9 Anxiety disorder, unspecified; F17.200 Nicotine dependence, unspecified, uncomplicated; F40.01 Agoraphobia with panic disorder; F43.10 Post-traumatic stress disorder, unspecified; F12.10 Cannabis abuse, uncomplicated; I25.2 Old myocardial infarction; Z83.2 Family history of diseases of the blood and blood-forming organs and certain disorders involving the immune mechanism; Z82.3 Family history of stroke

== ENCOUNTER → 2018-01-30 | Outpatient (CLI) | payer OTHER ==
[~2018-01-30] MED LIST changes: -ASPI81TA28 PO; -ATOR-26 PO; -CLON0.5T3 PO; -CLON1TAB3 PO; +CTP/1 PO; +KLN/5 PO; +LAMO25TA PO; +METO25TA3 PO; -SENNTAB23 PO; -SERT-234 PO; +VENL150C71 PO; +VENL75CA94 PO; +WLLSR150 PO
--- NOTE | 2018-01-30 15:21 | MAMMOGRAPHY REPORT ---
BILATERAL DIGITAL DIAGNOSTIC MAMMOGRAM TOMOSYNTHESIS WITH CAD AND TARGETED RIGHT ULTRASOUND: 8 CLINICAL HISTORY: 32-year-old woman presents after she noticed a palpable lump in the right breast fo r approximately 2 weeks. It was initially the size of a golf ball but has since decreased to the size of a walnut. She also reports intermittent bilateral breast pain, nonfocal occurring over the past f ew years. Based on exam. TECHNIQUE: Bilateral CC and MLO 2D and tomosynthesis images were obtained. Current study was also ev aluated with a Computer Aided Detection (CAD) system. COMPARISON: No prior exams were available for comparison. BREAST COMPOSITION: The tissue of both breasts is heterogeneously dense, which may obscure small mass es. FINDINGS: A triangular palpable marker was placed on the skin of the 12:00 right breast, denoting the area of palpable lump pointed out by the patient. There is no obvious mass, asymmetry, area of arch itectural distortion or cluster of calcification in the area of concern or elsewhere throughout the r emainder of the right and left breasts. Overall, no mammographic evidence of malignancy. No nipple retraction or focal skin thickening identified. Targeted ultrasound was performed in the area of palpable lump pointed out by the patient, in the 12: 00 right breast, 1 cm from the nipple. On palpation, there is an oval 2 ridgelike nodular area. Tar geted ultrasound performed over this nodule demonstrates sonographically normal tissue without eviden ce of a suspicious solid or cystic mass. The patient reported additional history of her daughter bum ping her right breast in this area prior to feeling the lump and therefore the palpable abnormality c ould be due to imaging occult fat necrosis. There is no evidence of a hematoma or drainable fluid co llection. IMPRESSION: ACR BI-RADS CATEGORY 2: BENIGN, ULTRASOUND ACR BI-RADS CATEGORY 2: BENIGN 1. There is no mammographic or targeted sonographic abnormality or evidence of malignancy in the rig ht 12:00 breast, 1 cm from the nipple, in the area of decreasing palpable lump pointed out by the pat ient. This finding may represent imaging occult fat necrosis or normal fibroglandular tissue. Martha nued clinical follow-up is recommended, as biopsy of a clinically suspicious mass should not be precl uded by negative imaging. 2. Overall no mammographic evidence of malignancy in the breasts. Recommend routine screening mammo graphy beginning at age 40. Some breast cancers are not detected with mammography. A negative mammographic report should not donato y biopsy if a clinically suggestive mass is present. Ghazal Gomez M.D. ay/:01/30/2018 11:58:49 Music Supervisor: RT Moreno(R)(M), [facility]; Camila Pizarro [facility] letter sent: Normal 1/2 OVERALL STUDY BIRADS: 2 Benign
== END | disposition home or self-care (01) ==
LOC: C.MAMM 08:49
PROVIDERS: ATTEND Obstetrics & Gynecology
DX: N63.10 Unspecified lump in the right breast, unspecified quadrant (principal); N63.20 Unspecified lump in the left breast, unspecified quadrant